=== PATIENT | male | born 1970 ===

== ENCOUNTER 2021-06-20 15:16 | Emergency (ER) | payer OTHER ==
[~2021-06-20] VITALS: Ht 175.3 cm; Wt 113.6 kg
[~2021-06-20 15:16] MED LIST: LIDOcaine 1% W/epiNEPHrine 1:100,000 20ml vial ONE
[2021-06-20 15:23] VITALS: BP 145/82
[2021-06-20] MEDS ORDERED: HYDROcodone/acetaminophen 10/325mg tab PO ONE (15:25)
[2021-06-20] MEDS ORDERED: TETanus/Pertussis (Acell)/Diphther VAC/PF (Tdap-Adult) 0.5ml syringe IMVAC ONE (15:25)
[2021-06-20] MEDS ORDERED: LIDOcaine 1% W/epiNEPHrine 1:200,000 10ml vial IJ ONE (15:25)
[2021-06-20] MEDS ORDERED: HYDR-3965 PO (16:33)
[2021-06-20] MEDS ORDERED: CEPH-585 PO (16:33)
== END 2021-06-20 17:22 | disposition home or self-care (01) ==
LOC: ER 15:17
DX: S62.630B Displaced fracture of distal phalanx of right index finger, initial encounter for open fracture (principal); W22.8XXA Striking against or struck by other objects, initial encounter; Y93.89 Activity, other specified; Y92.89 Other specified places as the place of occurrence of the external cause; Y99.8 Other external cause status
CPT/HCPCS: 12002; 73140; 90471; 90715; 99283; J3490

== ENCOUNTER 2021-07-02 14:37 | Emergency (ER) | payer OTHER ==
[~2021-07-02] VITALS: Ht 175.3 cm; Wt 109.1 kg
[~2021-07-02 14:37] MED LIST changes: +CEPH-585 PO; +HYDR-3965 PO; -LIDOcaine 1% W/epiNEPHrine 1:100,000 20ml vial ONE
[2021-07-02 14:42] VITALS: BP 162/110
[2021-07-02] MEDS ORDERED: CEPH-585 PO (14:59)
== END 2021-07-02 15:12 | disposition home or self-care (01) ==
LOC: ER 14:38
DX: S61.210D Laceration without foreign body of right index finger without damage to nail, subsequent encounter (principal); Z48.02 Encounter for removal of sutures; Z88.0 Allergy status to penicillin; Z79.2 Long term (current) use of antibiotics; X58.XXXD Exposure to other specified factors, subsequent encounter
CPT/HCPCS: 99283

== ENCOUNTER 2021-07-21 15:56 | Emergency (ER) | payer OTHER ==
[~2021-07-21] VITALS: Ht 175.3 cm; Wt 105.0 kg
[2021-07-21 16:10] VITALS: BP 179/95
== END 2021-07-21 18:11 | disposition home or self-care (01) ==
LOC: ER 15:56
DX: Z48.00 Encounter for change or removal of nonsurgical wound dressing (principal); M79.644 Pain in right finger(s); Z88.0 Allergy status to penicillin; Z79.2 Long term (current) use of antibiotics
CPT/HCPCS: 99282